=== PATIENT | female | born 2000 | race Caucasian/White ===

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

== ENCOUNTER 2019-02-06 12:10 | Outpatient (CLI) | payer MEDICAID, SELFPAY ==
[2019-02-06 12:49] LABS: Glucose,1 Hr (Glucola) 95 mg/dL (80-140)
== END 2019-02-06 12:30 ==
PROVIDERS: PCP Nurse Practitioner Family; Visit Provider Obstetrics & Gynecology
DX: Z34.92 Encounter for supervision of normal pregnancy, unspecified, second trimester (principal)
CPT/HCPCS: 36415; 82950

== ENCOUNTER 2019-02-20 01:39 | Outpatient (CLI) | payer MEDICAID, SELFPAY ==
--- NOTE | 2019-02-20 11:18 | DI.US_ITS ---
EXAM: US OB ULICES WEIGHT CLINICAL HISTORY: Poor weight gain, , Z34.90. TECHNIQUE: Ultrasound performed using standard protocol. COMPARISON: No exams were available for comparison FINDINGS: A technically excellent study was obtained. Please see the ultrasound worksheet for the complete res ults of the examination.
== END 2019-02-20 01:59 ==
PROVIDERS: PCP Nurse Practitioner Family; Visit Provider Obstetrics & Gynecology
DX: O26.10 Low weight gain in pregnancy, unspecified trimester (principal)
CPT/HCPCS: 76816

== ENCOUNTER 2019-03-26 16:38 | Outpatient (REF) | payer MEDICAID, SELFPAY | END 2019-03-26 16:58 | LOC: LBN 16:38 | PROVIDERS: PCP Nurse Practitioner Family; Visit Provider Obstetrics & Gynecology | DX: Z34.93 Encounter for supervision of normal pregnancy, unspecified, third trimester (principal) | CPT/HCPCS: 87081 ==

== ENCOUNTER 2019-04-09 15:18 | Outpatient (REF) | payer MEDICAID, SELFPAY ==
[2019-04-09 16:35] LABS: *AMPHETAMINES SCREEN URINE Negative (Negative); *BARBITURATES SCREEN URINE Negative (Negative); *BENZODIAZEPINES SCREEN URINE Negative (Negative); Cannabinoids THC Negative (Negative); Cocaine Screen,Urine Negative (Negative); METHADONE URINE SCREEN Negative (Negative); OPIATES URINE SCREEN Negative (Negative)
[2019-04-09 16:42] LABS: Tricyclic Antidepressants Negative (Negative)
[2019-04-15 11:28] LABS: Buprenorphine Negative; Norbuprenorphine Negative
== END 2019-04-09 15:38 ==
LOC: LBN 15:18
PROVIDERS: PCP Nurse Practitioner Family; Visit Provider Obstetrics & Gynecology
DX: Z34.93 Encounter for supervision of normal pregnancy, unspecified, third trimester (principal)
CPT/HCPCS: 80307

== ENCOUNTER 2019-04-16 16:25 | Outpatient (REF) | payer MEDICAID, SELFPAY ==
[2019-04-16 16:51] LABS: ROM Plus Negative
== END 2019-04-16 16:45 ==
LOC: LBN 16:25
PROVIDERS: PCP Nurse Practitioner Family; Visit Provider Obstetrics & Gynecology
DX: Z34.93 Encounter for supervision of normal pregnancy, unspecified, third trimester (principal)
CPT/HCPCS: 84112

== ENCOUNTER 2019-04-28 11:12 | Inpatient (IN) | payer MEDICAID, SELFPAY ==
[2019-04-28 11:45] LABS: HCT 40.5 % (36.0-46.0); HGB 13.4 g/dL (12.0-15.5); Mean Corp. HGB Concentration 33.1 g/dL (32.0-36.0); Mean Corpuscular Volume 90.8 fL (80-95); Mean Platelet Volume 10.3 fL (8.0-11.0); Platelet Count 231 x1000/uL (130-400); RBC 4.46 m/cumm (4.00-5.20); RBC Distribution Width 14.1 % (11.7-14.6); White Blood Cell Count 11.43 k/cumm (4.4-10.8)
[2019-04-28] MEDS: FentaNYL/ROPIvacaine 2 mcg/ml and 0.1% 200 ML CADD Cassette EP (12:30)
[2019-04-28] MEDS: Lactated Ringers 250 ML 500 ML IV (14:30)
[2019-04-29] MEDS: Ibuprofen 600 MG TAB PO ×3 (04:37→22:36)
[2019-04-29 07:09] LABS: HCT 34.2 % (36.0-46.0); Mean Corp. HGB Concentration 32.2 g/dL (32.0-36.0); Mean Corpuscular Hemoglobin 29.6 pg (27.0-33.0); Mean Corpuscular Volume 91.9 fL (80-95); Mean Platelet Volume 10.1 fL (8.0-11.0); Platelet Count 181 x1000/uL (130-400); RBC 3.72 m/cumm (4.00-5.20); RBC Distribution Width 14.2 % (11.7-14.6); White Blood Cell Count 14.05 k/cumm (4.4-10.8)
[2019-04-29] MEDS: Docusate Sodium 100 MG CAP PO (10:59)
[2019-04-29] MEDS: Acetaminophen 325 MG TAB 650 MG PO ×2 (15:19→22:37)
[2019-04-30] MEDS: Docusate Sodium 100 MG CAP PO (07:21)
[2019-04-30] MEDS: Ibuprofen 600 MG TAB PO (07:22)
[2019-04-30] MEDS: Acetaminophen 325 MG TAB 650 MG PO (07:22)
== END 2019-04-30 13:25 | disposition home or self-care (01) | DRG 807 ==
PROVIDERS: Admitting Provider Obstetrics & Gynecology; PCP Nurse Practitioner Family; Visit Provider Obstetrics & Gynecology
DX: O70.1 Second degree perineal laceration during delivery (principal); Z37.0 Single live birth; Z3A.39 39 weeks gestation of pregnancy; O77.0 Labor and delivery complicated by meconium in amniotic fluid; O99.344 Other mental disorders complicating childbirth; F32.9 Major depressive disorder, single episode, unspecified
CPT/HCPCS: 36415; 85027; 86850; 86900; 86901; G0378

== ENCOUNTER 2022-01-08 15:29 | Outpatient (REF) | payer MEDICAID, SELFPAY ==
--- NOTE | 2022-01-08 15:00 | PAPFT_PTH ---
PATIENT: Christie Shah LOC: [facility] U#:[id number] AGE/SX: 21/F ROOM: RE01/08/[address]: KEYON Bermudez : 2000 BED: DIS: 01/08/2022 SPEC #: [id number] RECD: 01/09/22 18:07 STATUS: JENI REQ #: [id number] RITA: 01/08/22 15:[address]: Antoinette Aldridge DEPT: [facility] Cytology RECD BY: Dolores Poole ENTERED: 01/09/22 18:08 SP TYPE: PAPFT OT DR: MELL ESPINOSA NP Tissues: 1 - CX/ENDOCX FOR PAP SMEARS Procedures: PAP THIN PREP/[facility] Screening Comments: [id number]
== END 2022-01-08 15:30 | disposition home or self-care (01) ==
LOC: LBN 15:29
PROVIDERS: PCP Registered Nurse; Visit Provider Nurse Practitioner Family
DX: R87.610 Atypical squamous cells of undetermined significance on cytologic smear of cervix (ASC-US) (principal); Z12.4 Encounter for screening for malignant neoplasm of cervix
CPT/HCPCS: 88142

== ENCOUNTER 2023-04-09 11:32 | Outpatient (REF) | payer MEDICAID, SELFPAY ==
[2023-04-10 15:05] LABS: Chlamydia Result Negative (Negative); GC Result Negative (Negative)
== END 2023-04-09 11:33 | disposition home or self-care (01) ==
LOC: LBN 11:32
PROVIDERS: PCP Registered Nurse; Visit Provider Obstetrics & Gynecology
DX: Z11.3 Encounter for screening for infections with a predominantly sexual mode of transmission (principal)
CPT/HCPCS: 87491; 87591

== ENCOUNTER 2023-06-18 04:40 | Outpatient (CLI) | payer MEDICAID, SELFPAY ==
[2023-06-18 15:00] LABS: Abs Immature Grans 0.02 10^3/uL (0.0-0.06); Absolute Basophil Count 0.03 10^3/uL (0.0-0.2); Absolute Eosinophil Count 0.06 10^3/uL (0.0-0.7); Absolute Lymphocyte Count 2.37 10^3/uL (1.2-3.4); Absolute Monocyte Count 0.53 10^3/uL (0.1-0.8); Absolute Neutrophil Count 5.06 10^3/uL (1.2-6.7); Basophils % 0.4; Eosinophils % 0.7; HCT 44.9 % (36.0-46.0); HGB 15.3 g/dL (11.2-15.7); Immature Grans % 0.2; Lymphocytes % 29.4; MCH 30.5 pg (27.0-33.0); MCHC 34.1 % (32.0-36.0); MCV 90 fL (80-95); MPV 9.8 fL (8.0-11.0); Monocytes % 6.6; Neutrophils % 62.7; Platelet Count 227 10^3/uL (130-400); RBC 5.01 10^6/uL (3.93-5.22); RDW 12.6 % (11.7-14.6); RDW-SD 41.6 fL; WBC 8.07 10^3/uL (4.4-10.8)
== END 2023-06-18 04:41 | disposition home or self-care (01) ==
LOC: LBO 04:40
PROVIDERS: PCP Registered Nurse; Visit Provider Obstetrics & Gynecology
DX: Z01.818 Encounter for other preprocedural examination (principal)
CPT/HCPCS: 36415; 86850; 86900; 86901; 85025

== ENCOUNTER 2023-06-19 06:03 | Day surgery (SDC) | payer MEDICAID, SELFPAY ==
[2023-06-19] VITALS (8 sets, daily range): BP systolic 100–120; BP diastolic 60–78; PULSE 60–88; RESP 15–26; TEMP 36.5–37; O2SAT 98–100; BMI 19.5
[2023-06-19] MEDS: Lactated Ringers 1,000 ML 125 ML IV (06:37)
--- NOTE | 2023-06-19 06:38 | ANES.PREOP_ITS ---
General Info Date of Service Date Performed: 06/19/23 Height: 5 ft 7 in Weight: 56.8 kg Body Mass Index (BMI): 19.5 Surgical Procedure: Operation Date: 06/19/23 07:40 Proposed Procedure Side Surgeon p Salpingectomy Laparoscopic Bilateral Sherley Jarrett DO Meds Allergies and Home Medications Allergies Allergy/AdvReac Type Severity Reaction Status Date / Time mold Allergy Severe headache,migraine,and Verified 06/19/23 06:11 vomiting Penicillins Allergy Unknown strong Verified 06/19/23 06:11 family history metoclopramide [From Reglan] AdvReac Severe Increases Verified 06/19/23 06:11 anxiety to an extreme level Home Medication Medication Instructions Recorded Unknown [No Known Home Meds] 05/03/23 Current Visit Medications: Current Medications Generic Name Dose Route Start Last Admin Trade Name Freq PRN Reason Stop Dose Admin Ringer's Solution 1,000 mls @ 125 mls/hr 06/19/23 06:00 06/19/23 06:37 IV 07/18/23 23:59 125 mls/hr INFUSION LIZ Administration IV Miscellaneous Supplies 1 each 06/19/23 06:00 Iv Access IV 07/18/23 23:59 DIRECTED LIZ Sodium Chloride 0 ml 06/19/23 06:00 Normal Saline Flush 10 Ml Syr IV 07/18/23 23:59 PRN PRN Sodium Chloride 0 ml 06/19/23 06:00 Normal Saline 10 Ml Vial IJ 07/18/23 23:59 DIRECTED PRN Sterile Water 0 ml 06/19/23 06:00 Water,Injection,Sterile 10 Ml Vial IJ 07/18/23 23:59 DIRECTED PRN PFSH Active Problems Active Problems: Problem Status Onset Code Encounter for IUD insertion Z30.430 Sterilization education Z30.09 Dysmenorrhea N94.6 Dysfunctional uterine bleeding N93.8 Medical History Medical History (normal spontaneous vaginal delivery) Family history of G6PD Depression Dyspareunia Depressive disorder Anxiety disorder Tinea corporis Tobacco Smoking/Tobacco Use Status: Current every day Tobacco Type: e-cigarettes Alcohol Alcohol Intake: current Alcohol intake frequency: 0-2 drinks per day Substance Use Substance use: Daily Substance use type: marijuana Details: Yesterday last dose Prental History History 1 Para 1 Hx # Term Pregnancies Multiple births Hx # Pregnancies Ectopic pregnancies AB induced Hx Number of Living Children 1 AB spontaneous Past Pregnancies Del. Date GA/Weeks # Preg Succ Route Wgt Sex Labor Lgth Anesth esia Location Prov Complic 04/28/19 39 No vaginal 2976.7 g Female [address] Rolan Mooney other Delivery Date: 04/28/19 Last Updated by: Anya Puente LPN second degree perineal laceration Vital Signs and Lab Results Vital Signs Most Recent Vital Signs in EMR: Most Recent Vital Signs Temp Pulse Resp BP Pulse Ox 37.0 C 88 16 111/78 98 06/19/23 06:11 06/19/23 06:11 06/19/23 06:11 06/19/23 06:11 06/19/23 06:11 Lab Results Blood Type / Crossmatch: Patient ABO/Rh O Positive 06/18/23 Antibody Screen NEGATIVE 06/18/23 Complete Blood Count: White Blood Count 8.07 10^3/uL (4.4-10.8) 06/18/23 14:55 Red Blood Count 5.01 10^6/uL (3.93-5.22) 06/18/23 14:55 Hemoglobin 15.3 g/dL (11.2-15.7) 06/18/23 14:55 Hematocrit 44.9 % (36.0-46.0) 06/18/23 14:55 Platelet Count 227 10^3/uL (130-400) 06/18/23 14:55 Complete Metabolic Panel: No Data to Display Liver Function Panel: No Data to Display Coagulation Panel: No Data to Display Cardiac Panel: No Data to Display Arterial Blood Gas: No Data to Display Venous Blood Gas: No Data to Display Pancreas Panel: No Data to Display Thyroid Panel: No Data to Display Infectious Disease: No Data to Display Blood Cultures: No Data to Display Toxicology Panel: No Data to Display Panel: No Data to Display Anesthesia Assessment and Plan Anesthesia History Personal History: No History of Anesthesia Complications Family History: No Family History of Anesthesia Complications Exercise Tolerance Exercise Tolerance: Metabolic Equivalents>4 Pertinent Negatives Pertinent Negatives: No Symptoms of GERD, No Major Cardiovascular Symptoms or Complaints, No Major Pulmonary Symptoms or Complaints and No History of CVA/TIA Cardiac & Pulmonary Exam Cardiac Exam: Normal S1/S2 Heart Sounds Pulmonary Exam: Clear Bilateral Breath Sounds Implantable Cardiac Device Does patient have a Pacemaker or an ICD?: No Airway Exam Known Difficult Airway: No Mallampati Class: 3 Mouth Opening: Normal (> 3cm) Thyromental Distance: Greater than 3 cm Neck Range of Motion: Full ROM Neck Circumference: Normal Teeth Condition: Normal Dentition (implant removed sx ) ASA Classification ASA Score: ASA 2 Emergency Case?: No NPO Status NPO Status: NPO Clears >2 hours, Solids >8 hours Status Status: Negative HCG Anesthesia Plan Resuscitation Status: Full Code Anesthesia Technique: General Anesthesia Airway Planned: Endotracheal Tube Monitors Used: Standard Monitors and SedLine
[2023-06-19] MEDS: Bupivacaine 0.25% Pres-Free 30 ML VIAL (08:02)
--- NOTE | 2023-06-19 08:05 | FALL_PTH ---
PATIENT: Christie Shah LOC: [facility] U#:[id number] AGE/SX: 23/F ROOM: RE06/19/[address]: Sherley Jarrett DO : 2000 BED: DIS: 06/19/2023 SPEC #: [id number] RECD: 06/19/23 12:38 STATUS: JENI REQ #: [id number] RITA: 06/19/23 08:[address]: Sherley Jarrett DEPT: Surgical Specimen RECD BY: Dolores Poole ENTERED: 06/19/23 12:39 SP TYPE: Fall OTHR DR: MELL ESPINOSA NP Tissues: 1 - FALLOPIAN TUBE (STERILIZATION) 2 - FALLOPIAN TUBE (STERILIZATION) Procedures: GROSS AND MICRO LEVEL 2 Comments: [id number]
--- NOTE | 2023-06-19 08:28 | ROE_ITS ---
Date of service: 06/19/23 Time of Service: 08:28 Operative Note Operative Note DATE OF PROCEDURE: 06/19/23 PRE-OP DIAGNOSIS: Undesired fertility POST-OP DIAGNOSIS: same PROCEDURE: Laparoscopic bilateral salpingectomy SURGEON: Sherley Jarrett CIRCLE SHEAR OPERATOR: Alma Barroso ANESTHESIA TYPE: Local By Surgeon and General LMA/ETT Refer to Anesthesia Record ESTIMATED BLOOD LOSS: 5 PATHOLOGY: other (1. Right fallopian tube 2. Left fallopian tube) COMPLICATIONS: None Patient was transported to: PACU Patient's condition: stable Indications: Undesired fertility Findings: Normal-appearing tubes, ovaries, uterus. Procedure Description: After full informed consent was obtained, patient was taken the operating suite with an IV running where she was placed in the dorsal supine position. Endotracheal intubation performed for the administration of general anesthesia with ease. A timeout was held. Patient was prepped and draped in the usual sterile fashion. She had pneumatic compression stockings for DVT prophylaxis, and no antibiotic prophylaxis was necessary. At this point the abdomen was examined. Quarter percent Marcaine was infiltrated into the infraumbilical space. A vertical incision to accommodate a 10 mm scope was made. The intra- abdominal wall was elevated with sharp towel clips. A Veress needle used to insert into the abdomen and created pneumoperitoneum with CO2 gas to a maximum pressure of 15 mmHg. Once pneumoperitoneum was created, under direct visualization, a 12 mm scope was placed. The abdomen was then inspected and there was no evidence of trauma or intra-abdominal or pelvic pathology. At this point a second and third right and left lower quadrant trocar site were placed after infiltration of quarter percent Marcaine and under direct visualization with a 5 mm port. At this point patient was placed in Trendelenburg and the bowel swept out of the pelvis. The right fallopian tube was identified, elevated, and cautery transected. Right fallopian tube was removed through the 5 mm port. Similar procedure was carried out on the left fallopian tube which was elevated, cautery transected, and removed. Pedicles were noted to be hemostatic. CO2 gas and pneumoperitoneum was released to 5 mmHg of pressure and again pedicles were inspected and noted to be hemostatic. At this point, the procedure was terminated. Pneumoperitoneum was released. Under direct visualization 5 mm trocar sites were removed from the abdomen and the patient was returned out of Trendelenburg to dorsal supine position. The infraumbilical fascia was identified and suture-ligated with 0 Vicryl suture. The skin edges were reapproximated with 4-0 undyed Monocryl suture and Steri-Strips and sterile dressing were placed. Patient awoke from anesthesia without difficulty and was taken the recovery room in stable condition. Complications: None apparent EBL: 5 mL Findings: Normal tubes, ovaries, uterus, no evidence of intra-abdominal or pelvic pathology or trauma Pathology: 1. Right fallopian tube 2. Left fallopian tube. Fluids: Crystalloid per anesthesia.
[2023-06-19] MEDS: ACETAMINOPHEN 1,000 MG/100 ML BTL 400 MG IVPB (08:40)
[2023-06-19] MEDS: fentaNYL 100 MCG/2 ML VIAL IVP (08:43)
--- NOTE | 2023-06-19 10:24 | W.ANESPOSTOP ---
Postoperative Evaluation Date, Time and Location Date Performed: 06/19/23 Time Performed: 09:09 Patient Location: PACU Vital Signs Most Recent Imported Vital Signs: Most Recent Vital Signs Temp Pulse Resp BP Pulse Ox 36.8 C 66 16 100/66 98 06/19/23 09:40 06/19/23 09:40 06/19/23 09:40 06/19/23 09:40 06/19/23 09:40 Pain Score Most Recent Pain Score: Most Recent Pain Score Pain Level 2 06/19/23 09:40 Assessment Mental Status: Awake (Alert & Oriented to Patient Baseline) Airway and Respiratory Function: Patent airway with normal (patient baseline) respiratory exam Cardiovascular Function: Hemodynamically Stable Hydration Status: Adequately Hydrated Nausea & Vomiting: No Nausea or Vomiting Pain: Pain is tolerable per patient Peripheral Nerve Block: Patient did not receive a nerve block
== END 2023-06-19 10:17 | disposition home or self-care (01) ==
PROVIDERS: PCP Registered Nurse; Visit Provider Obstetrics & Gynecology
PROC: (CPT 58661; principal; 2023-06-19 07:30)
DX: Z30.2 Encounter for sterilization (principal); N94.6 Dysmenorrhea, unspecified; F32.A Depression, unspecified; F41.9 Anxiety disorder, unspecified; F17.290 Nicotine dependence, other tobacco product, uncomplicated
CPT/HCPCS: 58661; 81025; 88302; J0131; J0665; J1100; J1885; J2001; J2250; J2405; J2704; J3010

== ENCOUNTER 2023-09-04 16:02 | Outpatient (REF) | payer MEDICAID, SELFPAY ==
--- NOTE | 2023-09-04 15:30 | PAPFT_PTH ---
PATIENT: Christie Shah LOC: [facility] U#:[id number] AGE/SX: 23/F ROOM: RE09/04/[address]: Marlena Montez NP : 2000 BED: DIS: 09/04/2023 SPEC #: [id number] RECD: 09/04/23 18:14 STATUS: JENI REQ #: [id number] RITA: 09/04/23 15:[address]: Marlena Montez NP DEPT: [facility] Cytology RECD BY: Dolores Poole ENTERED: 09/04/23 18:15 SP TYPE: PAPFT OTHR DR: MELL ESPINOSA NP Tissues: 1 - CX/ENDOCX FOR PAP SMEARS Procedures: PAP THIN PREP/[facility] Screening HPV DNA PROBE Comments: [id number]
== END 2023-09-04 16:03 | disposition home or self-care (01) ==
LOC: LBN 16:02
PROVIDERS: PCP Registered Nurse; Visit Provider Nurse Practitioner Women's Health
DX: Z12.4 Encounter for screening for malignant neoplasm of cervix (principal); R87.610 Atypical squamous cells of undetermined significance on cytologic smear of cervix (ASC-US); Z11.51 Encounter for screening for human papillomavirus (HPV)
CPT/HCPCS: 88142; 87624